=== PATIENT | female | born 1970 | race Two or more races ===

== ENCOUNTER 2018-01-14 19:02 | Emergency (ER) | payer OTHER ==
[2018-01-14 19:11] VITALS: BP 122/80; PULSE 84; TEMP 98.4; BMI 22.1
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
[2018-01-14] MEDS ORDERED: ACETAMINOPHEN 325 MG TABLET (FP) PO ONE (19:38)
[2018-01-14 20:03] LABS: URINE APPEARANCE CLEAR; URINE BILIRUBIN NEGATIVE (<2.0 mg/dL); URINE COLOR LTYELLOW; URINE GLUCOSE (UA) NEGATIVE (NEGATIVE); URINE KETONE NEGATIVE (NEGATIVE); URINE LEUK ESTERASE NEGATIVE (NEGATIVE); URINE NITRITE NEGATIVE (NEGATIVE); URINE PROTEIN NEGATIVE (NEGATIVE); URINE UROBILINOGEN NEGATIVE mg/dL (0.2-1.0)
[2018-01-14 20:14] LABS: HCG,QUALITATIVE URINE Negative
[2018-01-14] MEDS ORDERED: KETOROLAC TROMETHAMINE 60 MG/2 ML VIAL IM ONE (21:39)
[2018-01-14] MEDS ORDERED: KETOROLAC TROMETHAMINE 60 MG/2 ML VIAL ONE (21:43)
== END 2018-01-14 22:05 | disposition home or self-care (01) ==
LOC: JER 19:02
PROC: 3E0233Z Introduction of Anti-inflammatory into Muscle, Percutaneous Approach (ICD-10-PCS; principal; 2018-01-14)
DX: M54.2 Cervicalgia (principal); R51 Headache; V44.6XXA Car passenger injured in collision with heavy transport vehicle or bus in traffic accident, initial encounter; Y92.414 Local residential or business street as the place of occurrence of the external cause; Y93.89 Activity, other specified; Y99.8 Other external cause status
CPT/HCPCS: 70450-TC; 72125-TC; 81003; 84703; 99281-25

== ENCOUNTER 2022-12-13 04:07 | Day surgery (SDC) | payer OTHER ==
[2022-12-12 09:40] VITALS: BMI 22.8
[2022-12-13] MEDS ORDERED: PROPOFOL 60 ML ONE (10:49)
[2022-12-13] MEDS ORDERED: LACTATED RINGERS SOLUTION 1,000 ML IV SCH (12:30)
[2022-12-13 13:30] VITALS: RESP 20
[2022-12-13 14:23] VITALS: BP 120/58; PULSE 70; TEMP 97.8
== END 2022-12-13 14:30 | disposition home or self-care (01) ==
LOC: JASU-SURG 04:07
PROVIDERS: ATTEND Otolaryngology
PROC: 0WJ34ZZ Inspection of Oral Cavity and Throat, Percutaneous Endoscopic Approach (ICD-10-PCS; principal; 2022-12-13 12:00)
DX: G47.33 Obstructive sleep apnea (adult) (pediatric) (principal)
CPT/HCPCS: 81025; 94760